=== PATIENT | male | born 1975 ===

== ENCOUNTER 2023-11-29 16:55 | Emergency (ER) | payer OTHER ==
[~2023-11-29] VITALS: Ht 180.3 cm; Wt 113.3 kg
[~2023-11-29 16:55] MED LIST: ACETAMINOPHEN325 MG PO; AMLODIPINE BESYL5 MG PO; ATORVASTATIN CA10 MG PO; CYMBALTA60 MG PO; GABAPENTIN300 M2 PO; IBUPROFEN600 MG PO; LEVOTHYROXIN50 MCG PO; NEURONTIN100 MG PO; TOPROL XL25 M1 PO
[2023-11-29 21:23] VITALS: BP 155/84
== END 2023-11-29 21:41 | disposition home or self-care (01) | DRG 605 ==
LOC: ED 16:55
DX: S90.31XA Contusion of right foot, initial encounter (principal); S09.90XA Unspecified injury of head, initial encounter; E03.9 Hypothyroidism, unspecified; G60.0 Hereditary motor and sensory neuropathy; W18.39XA Other fall on same level, initial encounter; Y92.149 Unspecified place in prison as the place of occurrence of the external cause